=== PATIENT | male | born 1985 | race Caucasian/White ===

== ENCOUNTER 2019-04-10 10:21 | Emergency (ER) | payer SELFPAY ==
[2019-04-10] MEDS ORDERED: Metoclopramide 10 MG/2 ML SDV IVPUSH ONE (10:43)
[2019-04-10] MEDS ORDERED: LORazepam 2 MG/ML SDV IVPUSH ONE (10:44)
[2019-04-10] MEDS ORDERED: Dextrose 5%-Lactated Ringers 1,000 ML IV SCH (10:45)
--- NOTE | 2019-04-10 10:47 | EDM.PDOCBH ---
ED HPI GENERAL MEDICAL PROBLEM - General Chief Complaint: Drug or Alcohol Abuse Stated Complaint: VITALS ARE OFF SENT BY [facility] Time Seen by Provider: 04/10/19 10:42 Source of Information: Reports: Patient History Limitations: Reports: No Limitations - History of Present Illness INITIAL COMMENTS - FREE TEXT/NARRATIVE: 34-year-old male sent across from [facility] for medical clearance examination for potential admission to the residential crisis Center for detox from alcohol. Patient is been binging hard over the last week and upwards of of a gallon of vodka every 3 days. Has been drinking on a daily basis and has done so for greater than 10 years. Smokes a pack of cigarettes daily. Denies recreational or IV drug use. This morning he has been able to keep much down. Last drink was on Wednesday evening. He is now therefore 36 hours into his detoxification. Feels jittery and nauseated. Denies ever vomiting up any blood in the mornings. Does have morning emesis daily. Stools are almost always in the low side. Evaluation at the clinic revealed that his blood pressure was elevated and he has not seen a physician for many years. No obvious primary hypertension or signs or symptoms of alcohol withdrawal. Onset: Other (Chronic alcoholism. Trying to stop.) Duration: Hour(s): Location: Reports: Generalized (Feels generalized tremulous.) Quality: Reports: Other Severity: Moderate (Nausea not able to keep down water this morning.) Improves with: Reports: None Worsens with: Reports: None Context: Reports: Other (Chronic alcoholism.). Denies: Activity, Exercise, Lifting, Sick Contact, Trauma Associated Symptoms: Reports: Cough, Loss of Appetite, Malaise (Smoker's cough.) , Nausea/Vomiting, Weakness. Denies: Confusion, Chest Pain, cough w sputum, Diaphoresis, Fever/Chills, Headaches, Rash, Seizure (Nausea and dry heaves this morning), Shortness of Breath, Syncope Treatments HOUSE WIRER: Reports: Other (see below) (None.) Abdominal Pain Score (Numeric/FACES): 7 - Related Data Allergies Allergy/AdvReac Type Severity Reaction Status Date / Time No Known Allergies Allergy Verified 04/10/19 10:31 Home Meds: Home Meds LORazepam [Ativan] 1 mg PO ASDIRECTED #18 tablet 04/10/19 [Rx] Past Medical History Musculoskeletal History: Reports: Other (See Below) (Has had a complete separation of his right shoulder with open reduction internal fixation and then secondary removal of the hardware.) Psychiatric History: Reports: Addiction Social & Family History - Tobacco Use Smoking Status *Q: Never Smoker - Recreational Drug Use Recreational Drug Use: No - Living Situation & Occupation Occupation: Employed ED ROS GENERAL - Review of Systems Review Of Systems: See Below Constitutional: Reports: Malaise, Weakness, Fatigue, Decreased Appetite. Denies : Fever, Chills HEENT: Reports: No Symptoms Respiratory: Reports: Wheezing, Cough (Occasional wheezing), Sputum ( markers cough). Denies: Hemoptysis ( knee. ) Cardiovascular: Reports: No Symptoms, Other (Sent to the ED for evaluation of his blood pressure as it is elevated at 160/115). Denies: Chest Pain, Blood Pressure Problem, Claudication, Dyspnea on Exertion, Edema, Lightheadedness, Orthopnea Endocrine: Denies: Fatigue, High Glucose, Low Glucose, Polydypsia GI/Abdominal: Reports: Diarrhea (Stools are always on the semi-formed to loose side. No blood noted), Decreased Appetite, Nausea, Other (Usually vomits every morning. Dry heaves.). Denies: Hematemesis : Reports: Frequency Musculoskeletal: Reports: Back Pain, Joint Pain (Right shoulder pain at times) Skin: Reports: Other (Scar right upper forehead where he had a skin tumor removed which was benign) Neurological: Reports: No Symptoms, Weakness. Denies: Confusion, Dizziness, Headache, Numbness, Paresthesia, Pre-Existing Deficit, Seizure, Syncope, Tingling, Tremors, Trouble Speaking, Difficulty Walking Psychiatric: Reports: No Symptoms Hematologic/Lymphatic: Reports: No Symptoms Immunologic: Reports: No Symptoms ED EXAM, BEHAVIORAL HEALTH - Physical Exam Exam: See Below Exam Limited By: No Limitations General Appearance: Alert, WD/WN, Anxious, Moderate Distress, Other (Initial vital signs show is afebrile pulse is 96 and sinus respiratory 16 initial BP was 160/115 with sats of 98% on room air. BP did come down to 1 5108 within a few minutes of being in the ED.) Eye Exam: Bilateral Eye: Normal Inspection (No scleral icterus. No pallor.) Throat/Mouth: Other (Tongue is dry and coated. Or purchase diffusely erythematous from smoking.) Head: Atraumatic, Normocephalic, Other Neck: Normal Inspection (No outward signs of head or facial trauma.), Supple, Non-Tender, Full Range of Motion. No: Lymphadenopathy (L), Lymphadenopathy (R) Respiratory/Chest: No Respiratory Distress, No Accessory Muscle Use, Rhonchi ( Scattered rhonchi upper anterior chest x-ray with coughing.), Wheezing ( Occasional expiratory wheeze.) Cardiovascular: Normal Peripheral Pulses, Regular Rate, Rhythm, No Edema, No Gallop, No Murmur, No Rub GI/Abdominal: Normal Bowel Sounds, Soft, Non-Tender, No Abnormal Bruit, No Mass , Pelvis Stable, Tender (No surgical scars tender right upper quadrant in the distribution of his liver. Mild.), Hepatomegaly, Other (Male) Exam: No Hernia Back Exam: Normal Inspection, Full Range of Motion. No: CVA Tenderness (L), CVA Tenderness (R) Extremities: Normal Inspection, Normal Range of Motion, Non-Tender Neurological: Alert, Normal Mood/Affect, CN II-XII Intact, Normal Cognition, Normal Gait, No Motor/Sensory Deficits, Oriented x 3 Psychiatric: Alert, Normal Affect, Normal Cognition, Normal Mood, Oriented, Other Skin Exam: Warm (Mildly anxious.), Dry, Intact, Normal color, No rash EKG INTERPRETATION EKG Date: 04/10/19 Time: 11:33 Rhythm: NSR Rate (Beats/Min): 76 Dora: Normal P-Wave: Present QRS: Other (Initial poor R-wave progression may be due to lead placement. There are Q waves in leads 3 and aVF with T-wave inversion. Cannot rule out old inferior wall myocardial infarction.) ST-T: Other (T-wave inversion leads 3 and aVF only.) QT: Normal EKG Interpretation Comments: Abnormal ECG COURSE, BEHAVIORAL HEALTH COMP - Course Vital Signs: Last Vital Signs Temp 36.3 C 04/10/19 10:28 Pulse 96 04/10/19 10:28 Resp 16 04/10/19 10:28 BP 160/115 H 04/10/19 10:28 Pulse Ox 98 04/10/19 10:28 Orders, Labs, Meds: Active Orders 24 hr Category Date Time Status EKG Documentation Completion [RC] STAT Care 04/10/19 10:44 Active Dextrose 5%-Lactated Ringers 1,000 ml Med 04/10/19 10:45 Active IV ASDIRECTED Medication Orders Dextrose/Lactated Ringer's (Dextrose 5%-Lactated Ringers) 1,000 mls @ 999 mls/ hr IV ASDIRECTED DEBORAH Last Admin: 04/10/19 11:07 Dose: 999 mls/hr Laboratory Tests 04/10/19 04/10/19 04/10/19 Range/Units 10:54 10:54 10:54 WBC 7.80 (4.23-9.07) K/mm3 RBC 5.44 (4.63-6.08) M/mm3 Hgb 17.3 (13.7-17.5) gm/L Hct 49.8 (40.1-51.0) % MCV 91.5 (79.0-92.2) fl MCH 31.8 (25.7-32.2) pg MCHC 34.7 (32.2-35.5) g/dl RDW Std Deviation 42.8 (35.1-43.9) fL Plt Count 336 (163-337) K/mm3 MPV 8.6 L (9.4-12.3) fl Neut % (Auto) 67.9 (34.0-67.9) % Lymph % (Auto) 14.9 L (21.8-53.1) % [place] % (Auto) 16.9 H (5.3-12.2) % Eos % (Auto) 0.1 L (0.8-7.0) Baso % (Auto) 0.1 (0.1-1.2) % Neut # (Auto) 5.29 (1.78-5.38) K/mm3 Lymph # (Auto) 1.16 L (1.32-3.57) K/mm3 [place] # (Auto) 1.32 H (0.30-0.82) K/mm3 Eos # (Auto) 0.01 L (0.04-0.54) K/mm3 Baso # (Auto) 0.01 (0.01-0.08) K/mm3 Manual Slide Review Normal smear PT 10.4 (9.7-12.0) SECONDS INR 0.95 APTT 30 (22-31) SECONDS Sodium 142 (136-145) mEq/L Potassium 3.9 (3.5-5.1) mEq/L Chloride 103 (98-107) mEq/L Carbon Dioxide 28 (21-32) mEq/L Anion Gap 14.9 (5-15) BUN 7 (7-18) mg/dL Creatinine 0.8 (0.7-1.3) mg/dL Est Cr Clr Drug Dosing 128.25 mL/min Estimated GFR (MDRD) > 60 (>60) mL/min BUN/Creatinine Ratio 8.8 L (14-18) Glucose 107 H (74-106) mg/dL Calcium 9.3 (8.5-10.1) mg/dL Magnesium 1.9 (1.8-2.4) mg/dl Total Bilirubin 0.9 (0.2-1.0) mg/dL AST 54 H (15-37) U/L ALT 77 H (16-63) U/L Alkaline Phosphatase 88 (46-116) U/L Total Protein 8.3 H (6.4-8.2) g/dl Albumin 4.4 (3.4-5.0) g/dl Globulin 3.9 gm/dL Albumin/Globulin Ratio 1.1 (1-2) Lipase 140 (73-393) U/L Urine Color (Yellow) Urine Appearance (Clear) Urine pH (5.0-8.0) Ur Specific [place] (1.005-1.030) Urine Protein (Negative) Urine Glucose (UA) (Negative) Urine Ketones (Negative) Urine Occult Blood (Negative) Urine Nitrite (Negative) Urine Bilirubin (Negative) Urine Urobilinogen (0.2-1.0) Ur Leukocyte Esterase (Negative) Urine RBC (0-5) /hpf Urine WBC (0-5) /hpf Ur Squamous Epith Cells (0-5) /hpf Urine Bacteria (FEW) /hpf Urine Mucus (FEW) /hpf Urine Opiates Screen (BPWYEM=512) Ur Buprenorphine Scrn (CUTOFF=10) Ur Oxycodone Screen (SKC3JG=506) Urine Methadone Screen (CHR3YZ=195) Ur Propoxyphene Screen (NSQWTU=794) Ur Barbiturates Screen (TLJGOH=498) Ur Tricyclics Screen (OHTPBR=632) Ur Phencyclidine Scrn (CUTOFF=25) Ur Amphetamine Screen (HHOLRI=303) U Methamphetamines Scrn (SAPLEP=880) U Benzodiazepines Scrn (GAFGTD=594) U Cocaine Metab Screen (DIZYWW=720) U Marijuana (THC) Screen (CUTOFF=50) Ethyl Alcohol (0.00) gm% Ketones (0.0-0.3) mM 04/10/19 04/10/19 04/10/19 Range/Units 10:54 10:54 11:10 WBC (4.23-9.07) K/mm3 RBC (4.63-6.08) M/mm3 Hgb (13.7-17.5) gm/L Hct (40.1-51.0) % MCV (79.0-92.2) fl MCH (25.7-32.2) pg MCHC (32.2-35.5) g/dl RDW Std Deviation (35.1-43.9) fL Plt Count (163-337) K/mm3 MPV (9.4-12.3) fl Neut % (Auto) (34.0-67.9) % Lymph % (Auto) (21.8-53.1) % [place] % (Auto) (5.3-12.2) % Eos % (Auto) (0.8-7.0) Baso % (Auto) (0.1-1.2) % Neut # (Auto) (1.78-5.38) K/mm3 Lymph # (Auto) (1.32-3.57) K/mm3 [place] # (Auto) (0.30-0.82) K/mm3 Eos # (Auto) (0.04-0.54) K/mm3 Baso # (Auto) (0.01-0.08) K/mm3 Manual Slide Review PT (9.7-12.0) SECONDS INR APTT (22-31) SECONDS Sodium (136-145) mEq/L Potassium (3.5-5.1) mEq/L Chloride (98-107) mEq/L Carbon Dioxide (21-32) mEq/L Anion Gap (5-15) BUN (7-18) mg/dL Creatinine (0.7-1.3) mg/dL Est Cr Clr Drug Dosing mL/min Estimated GFR (MDRD) (>60) mL/min BUN/Creatinine Ratio (14-18) Glucose (74-106) mg/dL Calcium (8.5-10.1) mg/dL Magnesium (1.8-2.4) mg/dl Total Bilirubin (0.2-1.0) mg/dL AST (15-37) U/L ALT (16-63) U/L Alkaline Phosphatase (46-116) U/L Total Protein (6.4-8.2) g/dl Albumin (3.4-5.0) g/dl Globulin gm/dL Albumin/Globulin Ratio (1-2) Lipase (73-393) U/L Urine Color Yellow (Yellow) Urine Appearance Clear (Clear) Urine pH 6.5 (5.0-8.0) Ur Specific [place] 1.020 (1.005-1.030) Urine Protein Negative (Negative) Urine Glucose (UA) Negative (Negative) Urine Ketones Negative (Negative) Urine Occult Blood Negative (Negative) Urine Nitrite Negative (Negative) Urine Bilirubin Negative (Negative) Urine Urobilinogen 0.2 (0.2-1.0) Ur Leukocyte Esterase Negative (Negative) Urine RBC 0-5 (0-5) /hpf Urine WBC 0-5 (0-5) /hpf Ur Squamous Epith Cells Not seen (0-5) /hpf Urine Bacteria Few (FEW) /hpf Urine Mucus Few (FEW) /hpf Urine Opiates Screen (WCYKAA=998) Ur Buprenorphine Scrn (CUTOFF=10) Ur Oxycodone Screen (GJQ8LL=238) Urine Methadone Screen (PTA1DL=821) Ur Propoxyphene Screen (MIUUWT=369) Ur Barbiturates Screen (EBRBGE=003) Ur Tricyclics Screen (IMDAGR=427) Ur Phencyclidine Scrn (CUTOFF=25) Ur Amphetamine Screen (OHBEZD=898) U Methamphetamines Scrn (SHAWRO=982) U Benzodiazepines Scrn (TLADSU=438) U Cocaine Metab Screen (CECZQI=271) U Marijuana (THC) Screen (CUTOFF=50) Ethyl Alcohol 0.00 (0.00) gm% Ketones 0.49 (0.0-0.3) mM 04/10/19 Range/Units 11:11 WBC (4.23-9.07) K/mm3 RBC (4.63-6.08) M/mm3 Hgb (13.7-17.5) gm/L Hct (40.1-51.0) % MCV (79.0-92.2) fl MCH (25.7-32.2) pg MCHC (32.2-35.5) g/dl RDW Std Deviation (35.1-43.9) fL Plt Count (163-337) K/mm3 MPV (9.4-12.3) fl Neut % (Auto) (34.0-67.9) % Lymph % (Auto) (21.8-53.1) % [place] % (Auto) (5.3-12.2) % Eos % (Auto) (0.8-7.0) Baso % (Auto) (0.1-1.2) % Neut # (Auto) (1.78-5.38) K/mm3 Lymph # (Auto) (1.32-3.57) K/mm3 [place] # (Auto) (0.30-0.82) K/mm3 Eos # (Auto) (0.04-0.54) K/mm3 Baso # (Auto) (0.01-0.08) K/mm3 Manual Slide Review PT (9.7-12.0) SECONDS INR APTT (22-31) SECONDS Sodium (136-145) mEq/L Potassium (3.5-5.1) mEq/L Chloride (98-107) mEq/L Carbon Dioxide (21-32) mEq/L Anion Gap (5-15) BUN (7-18) mg/dL Creatinine (0.7-1.3) mg/dL Est Cr Clr Drug Dosing mL/min Estimated GFR (MDRD) (>60) mL/min BUN/Creatinine Ratio (14-18) Glucose (74-106) mg/dL Calcium (8.5-10.1) mg/dL Magnesium (1.8-2.4) mg/dl Total Bilirubin (0.2-1.0) mg/dL AST (15-37) U/L ALT (16-63) U/L Alkaline Phosphatase (46-116) U/L Total Protein (6.4-8.2) g/dl Albumin (3.4-5.0) g/dl Globulin gm/dL Albumin/Globulin Ratio (1-2) Lipase (73-393) U/L Urine Color (Yellow) Urine Appearance (Clear) Urine pH (5.0-8.0) Ur Specific [place] (1.005-1.030) Urine Protein (Negative) Urine Glucose (UA) (Negative) Urine Ketones (Negative) Urine Occult Blood (Negative) Urine Nitrite (Negative) Urine Bilirubin (Negative) Urine Urobilinogen (0.2-1.0) Ur Leukocyte Esterase (Negative) Urine RBC (0-5) /hpf Urine WBC (0-5) /hpf Ur Squamous Epith Cells (0-5) /hpf Urine Bacteria (FEW) /hpf Urine Mucus (FEW) /hpf Urine Opiates Screen Negative (DOSPFR=032) Ur Buprenorphine Scrn Negative (CUTOFF=10) Ur Oxycodone Screen Negative (PPM7TU=673) Urine Methadone Screen Negative (ZTI6BL=076) Ur Propoxyphene Screen Negative (DDZZOP=027) Ur Barbiturates Screen Negative (HKQMXD=231) Ur Tricyclics Screen Negative (YVSVOK=608) Ur Phencyclidine Scrn Negative (CUTOFF=25) Ur Amphetamine Screen Negative (TDOMKN=110) U Methamphetamines Scrn Negative (PTQUYD=668) U Benzodiazepines Scrn Negative (XXMWID=977) U Cocaine Metab Screen Negative (SUNFAB=812) U Marijuana (THC) Screen Negative (CUTOFF=50) Ethyl Alcohol (0.00) gm% Ketones (0.0-0.3) mM Medications Generic Name Dose Route Start Last Admin Trade Name Freq PRN Reason Stop Dose Admin Dextrose/Lactated Ringer's 1,000 mls @ 999 mls/hr 04/10/19 10:45 04/10/19 11: 07 Dextrose 5%-Lactated Ringers IV 999 mls/hr ASDIRECTED DEBORAH Administration Discontinued Medications Generic Name Dose Route Start Last Admin Trade Name Freq PRN Reason Stop Dose Admin Lorazepam 1 mg 04/10/19 10:44 04/10/19 11:07 Ativan IVPUSH 04/10/19 10:45 1 mg ONETIME ONE Administration Metoclopramide HCl 10 mg 04/10/19 10:43 04/10/19 11:08 Reglan IVPUSH 04/10/19 10:44 10 mg ONETIME ONE Administration Thiamine HCl 100 mg 04/10/19 10:48 04/10/19 11:09 Vitamin B-1 IVPUSH 04/10/19 10:49 100 mg ONETIME ONE Administration Re-Assessment/Re-Exam: 34-year-old male sent across from [facility] where he went this morning seeking help to help stop drinking alcohol. Patient is been drinking alcohol on a daily basis for about 10 years. Is drinking over the last 3-4 days where he drank a gallon of vodka. Usually goes through about a gallon every 3 days. He has morning emesis and dry heaves. Tetanus in the mornings and has take a drink to control them. Has been still working. He is suffering mild malnutrition. It' s been 36 patient couldn't keep much down this morning other than a little better water. She didn't sleep at all last night feeling agitated and restless. Examination reveals a few rhonchi and expiratory wheezes in his chest from smoking. Benign abdomen other than slight tenderness right upper quadrant of the abdomen in the distribution of his liver which is mildly palpable. Very mild tremor at this time. Plan IV D5 Ringer's lactate at open. Given Reglan 10 mg IV with Ativan 1 mg IV. We'll also do be given thiamine 100 mg IV. Routine labs to include coags and serum magnesium level. Serum lipase as well. Blood alcohol level as well. Re-Assessment/Re-Exam Date: 04/10/19 (11:24: Blood pressure has come down to 119 /57.) Re-Assessment/Re-Exam Time: 12:55 (Urinalysis is normal. Urine drug screen is negative as well. White count is 7.80 with automated differential showing 68% neutrophils. Hemoglobin is 17.3 with hematocrit of 49.8 indicating mild volume depletion or hemoconcentration. Platelet count is normal at 336,000.. Chemistry reveals a sodium of 142 and a potassium of 3.9. Chloride is 103 with a bicarbonate of 28. And a gap is 14.9. B you and is 7 with a creatinine of 0.8. GFR is greater than 60. Glucose is 107 with a calcium of 9.3. Magnesium is normal at 1.9. Liver function shows a normal bilirubin at 0.9. AST is mildly elevated at 54 and ALT is mildly elevated at 77. Alk phosphatase is 88. Total protein is 8.3 with an albumin fraction of 4.4. Serum lipase is 140. Serum ketones were mildly elevated at 0.49. Blood alcohol is 0.00.) Medical Clearance: 04/10/19 13:25 Patient is still is cleared for admission to the [facility] an acute care [facility].. That will not be available until tomorrow. He it will therefore report to [facility] tomorrow morning. I will start him on Ativan 1 mg by mouth every 6 hours for 2 days and then one every 8 hours for 2 days then 1 every 12 hours for 2 days and then off. Departure - Departure Time of Disposition: 13:26 Disposition: Home, Self-Care 01 Condition: Fair Clinical Impression: Alcohol withdrawal syndrome Qualifiers: Complication of substance-induced condition: uncomplicated Qualified Code(s): F10.230 - Alcohol dependence with withdrawal, uncomplicated - Discharge Information *PRESCRIPTION DRUG MONITORING PROGRAM REVIEWED*: No *COPY OF PRESCRIPTION DRUG MONITORING REPORT IN PATIENT TIFFANY: No Prescriptions: LORazepam [Ativan] 1 mg PO ASDIRECTED #18 tablet Referrals: PCP,None [Primary Care Provider] - Additional Instructions: Evaluation in the emergency room today in regards to Dr. drinking alcohol. Heavy alcohol use for the last 10 years. Fairly heavy over the last 3 days as well. Usually he will start to have detox symptoms which is tremors sweats nausea and vomiting 36-48 hours after the last alcohol drink. Lab tests done through the ED revealed mild volume depletion as we expected suggest been able to eat or drink much the last day or so. Her nausea was treated with Reglan 10 mg IV and given a dose of Ativan 1 mg IV to alleviate withdrawal symptoms. This medication will need to be continued in tablet form one tablet every 6 hours for the next 2 days and then reduce to 1 tablet every 8 hours for 2 days and then 1 tablet every 12 hours for 2 days and then 1 tablet at bedtime the next night. This would be to 3 acute withdrawal phase. Discussions with [facility] clinic indicate that you will be admitted tentatively to the residential treatment center tomorrow morning as they do not have a bed available today. From a medical point of view you are cleared for admission to that facility. Next dose of Ativan would be due around 1830 tonight and then midnight. Return to emergency department if any nausea vomiting, delirium or severe tremors occur or inability keep down medication. - My Orders Last 24 Hours: My Active Orders 04/10/19 10:44 EKG Documentation Completion [RC] STAT 04/10/19 10:45 Dextrose 5%-Lactated Ringers 1,000 ml IV ASDIRECTED - Assessment/Plan Last 24 Hours: My Active Orders 04/10/19 10:44 EKG Documentation Completion [RC] STAT 04/10/19 10:45 Dextrose 5%-Lactated Ringers 1,000 ml IV ASDIRECTED
[2019-04-10] MEDS ORDERED: Thiamine 200 MG/2 ML MDV IVPUSH ONE (10:48)
[2019-04-10] MEDS ORDERED: LORazepam 1 MG Tab PO ONE (13:24)
== END 2019-04-10 13:53 | disposition home or self-care (01) ==
LOC: JD.ED 10:21
DX: F10.230 Alcohol dependence with withdrawal, uncomplicated (principal)
CPT/HCPCS: 36415; 80053; 80306; 81001; 82009; 83690; 83735; 85025; 85610; 85730; 93005; 96361; 96374; 96375; 99285; A9270; G0480; J2060; J2765; J3411; J7042

== ENCOUNTER 2019-06-22 10:29 | Emergency (ER) | payer SELFPAY ==
--- NOTE | 2019-06-22 10:38 | EDM.PDOC ---
ED HPI GENERAL MEDICAL PROBLEM - General Chief Complaint: General Stated Complaint: ALCOHOL WITHDRAWAL Time Seen by Provider: 06/22/19 10:37 - History of Present Illness INITIAL COMMENTS - FREE TEXT/NARRATIVE: 34-year-old male presents to the emergency room to get off alcohol. Patient has a 10 year history of heavy alcohol abuse. He was evaluated here couple months ago and then went to [facility] for a week or 2 and stayed dry for about a month he stopped going to and started drinking again. He says his drinking was pretty moderate until about a week ago the increased over the last week or so. He has been drinking 4-5 beers a day and and 2 fifths of whiskey daily. His last drink was last night some time he is not certain when he says over the last week he drinks to the point of passing out awakens and does it all over again. The patient is a little nauseated now but he denies any pain. The patient describes a what could be a long history of anxiety problems. The patient is not aware of any seizure like activity. - Related Data Allergies Allergy/AdvReac Type Severity Reaction Status Date / Time No Known Allergies Allergy Verified 06/22/19 10:43 Home Meds: Home Meds LORazepam [Ativan] 1 mg PO Q6H #20 tab 06/22/19 [Rx] Potassium Chloride [Klor-Con M20] 20 meq PO Q8H #7 tab.er 06/22/19 [Rx] Past Medical History Musculoskeletal History: Reports: Other (See Below) (Has had a complete separation of his right shoulder with open reduction internal fixation and then secondary removal of the hardware.) Psychiatric History: Reports: Addiction Social & Family History - Living Situation & Occupation Occupation: Employed ED ROS GENERAL - Review of Systems Review Of Systems: See Below Constitutional: Reports: No Symptoms HEENT: Reports: No Symptoms Respiratory: Reports: No Symptoms Cardiovascular: Reports: No Symptoms Endocrine: Reports: No Symptoms GI/Abdominal: Reports: Nausea. Denies: Constipation, Diarrhea, Vomiting Musculoskeletal: Reports: No Symptoms Skin: Reports: No Symptoms Neurological: Reports: Other (He has a history of a seizure years ago while trying to quit drinking). Denies: No Symptoms ED EXAM, GENERAL - Physical Exam Exam: See Below Exam Limited By: No Limitations General Appearance: Alert, Anxious (Mildly anxious) Eye Exam: Bilateral Eye: Normal Inspection Ears: Normal External Exam, Normal Canal, Hearing Grossly Normal, Normal TMs Throat/Mouth: Normal Inspection, Normal Lips, Normal Teeth, Normal Gums, Normal Oropharynx, Normal Voice, No Airway Compromise Head: Atraumatic, Normocephalic Respiratory/Chest: No Respiratory Distress, Lungs Clear, Normal Breath Sounds, No Accessory Muscle Use, Chest Non-Tender Cardiovascular: Regular Rate, Rhythm, No Edema, No Murmur GI/Abdominal: Normal Bowel Sounds, Soft, Other (Vague generalized discomfort very mild no rigidity rebound or guarding) Neurological: Alert, Oriented, Normal Cognition Psychiatric: Normal Affect, Anxious (He is mildly anxious at this time no thoughts of hurting himself) Skin Exam: Warm, Dry, Intact Lymphatic: No Adenopathy Course - Vital Signs Last Recorded V/S: Last Vital Signs Temp 36.2 C 06/22/19 10:39 Pulse 110 H 06/22/19 10:39 Resp 18 06/22/19 10:39 BP 129/108 H 06/22/19 10:39 Pulse Ox 98 06/22/19 10:39 - Orders/Labs/Meds Labs: Laboratory Tests 06/22/19 06/22/19 06/22/19 Range/Units 11:21 11:21 12:18 WBC 9.96 H (4.23-9.07) K/mm3 RBC 5.62 (4.63-6.08) M/mm3 Hgb 17.3 (13.7-17.5) gm/dl Hct 50.0 (40.1-51.0) % MCV 89.0 (79.0-92.2) fl MCH 30.8 (25.7-32.2) pg MCHC 34.6 (32.2-35.5) g/dl RDW Std Deviation 41.8 (35.1-43.9) fL Plt Count 437 H D (163-337) K/mm3 MPV 8.3 L (9.4-12.3) fl Neutrophils % (Manual) 69 H (40-60) % Band Neutrophils % 2 (0-10) % Lymphocytes % (Manual) 18 L (20-40) % Atypical Lymphs % 0 % Monocytes % (Manual) 11 H (2-10) % Eosinophils % (Manual) 0 L (0.8-7.0) % Basophils % (Manual) 0 L (0.2-1.2) Platelet Estimate Adequate RBC Morph Comment Normal Sodium 139 (136-145) mEq/L Potassium 3.4 L (3.5-5.1) mEq/L Chloride 100 (98-107) mEq/L Carbon Dioxide 26 (21-32) mEq/L Anion Gap 16.4 H (5-15) BUN 8 (7-18) mg/dL Creatinine 0.7 (0.7-1.3) mg/dL Est Cr Clr Drug Dosing 146.57 mL/min Estimated GFR (MDRD) > 60 (>60) mL/min BUN/Creatinine Ratio 11.4 L (14-18) Glucose 119 H (74-106) mg/dL Calcium 8.8 (8.5-10.1) mg/dL Magnesium 1.9 (1.8-2.4) mg/dl Total Bilirubin 0.2 (0.2-1.0) mg/dL AST 35 (15-37) U/L ALT 57 (16-63) U/L Alkaline Phosphatase 101 (46-116) U/L Total Protein 7.8 (6.4-8.2) g/dl Albumin 3.9 (3.4-5.0) g/dl Globulin 3.9 gm/dL Albumin/Globulin Ratio 1.0 (1-2) Urine Color Yellow (Yellow) Urine Appearance Clear (Clear) Urine pH 7.0 (5.0-8.0) Ur Specific [place] 1.015 (1.005-1.030) Urine Protein Negative (Negative) Urine Glucose (UA) Negative (Negative) Urine Ketones Negative (Negative) Urine Occult Blood Negative (Negative) Urine Nitrite Negative (Negative) Urine Bilirubin Negative (Negative) Urine Urobilinogen 0.2 (0.2-1.0) Ur Leukocyte Esterase Negative (Negative) Urine RBC 0-5 (0-5) /hpf Urine WBC Not seen (0-5) /hpf Ur Squamous Epith Cells 0-5 (0-5) /hpf Urine Bacteria Rare (FEW) /hpf Urine Mucus Not seen (FEW) /hpf Urine Opiates Screen (AQAROO=483) Ur Buprenorphine Scrn (CUTOFF=10) Ur Oxycodone Screen (FCZ9SL=071) Urine Methadone Screen (CLF9MY=867) Ur Propoxyphene Screen (YNHNYL=784) Ur Barbiturates Screen (YWDSQZ=767) Ur Tricyclics Screen (LFQVXE=835) Ur Phencyclidine Scrn (CUTOFF=25) Ur Amphetamine Screen (FAXZNL=868) U Methamphetamines Scrn (YAYSER=857) U Benzodiazepines Scrn (AAGGZF=924) U Cocaine Metab Screen (AWKZWA=794) U Marijuana (THC) Screen (CUTOFF=50) Ethyl Alcohol 0.13 (0.00) gm% 06/22/19 Range/Units 12:18 WBC (4.23-9.07) K/mm3 RBC (4.63-6.08) M/mm3 Hgb (13.7-17.5) gm/dl Hct (40.1-51.0) % MCV (79.0-92.2) fl MCH (25.7-32.2) pg MCHC (32.2-35.5) g/dl RDW Std Deviation (35.1-43.9) fL Plt Count (163-337) K/mm3 MPV (9.4-12.3) fl Neutrophils % (Manual) (40-60) % Band Neutrophils % (0-10) % Lymphocytes % (Manual) (20-40) % Atypical Lymphs % % Monocytes % (Manual) (2-10) % Eosinophils % (Manual) (0.8-7.0) % Basophils % (Manual) (0.2-1.2) Platelet Estimate RBC Morph Comment Sodium (136-145) mEq/L Potassium (3.5-5.1) mEq/L Chloride (98-107) mEq/L Carbon Dioxide (21-32) mEq/L Anion Gap (5-15) BUN (7-18) mg/dL Creatinine (0.7-1.3) mg/dL Est Cr Clr Drug Dosing mL/min Estimated GFR (MDRD) (>60) mL/min BUN/Creatinine Ratio (14-18) Glucose (74-106) mg/dL Calcium (8.5-10.1) mg/dL Magnesium (1.8-2.4) mg/dl Total Bilirubin (0.2-1.0) mg/dL AST (15-37) U/L ALT (16-63) U/L Alkaline Phosphatase (46-116) U/L Total Protein (6.4-8.2) g/dl Albumin (3.4-5.0) g/dl Globulin gm/dL Albumin/Globulin Ratio (1-2) Urine Color (Yellow) Urine Appearance (Clear) Urine pH (5.0-8.0) Ur Specific [place] (1.005-1.030) Urine Protein (Negative) Urine Glucose (UA) (Negative) Urine Ketones (Negative) Urine Occult Blood (Negative) Urine Nitrite (Negative) Urine Bilirubin (Negative) Urine Urobilinogen (0.2-1.0) Ur Leukocyte Esterase (Negative) Urine RBC (0-5) /hpf Urine WBC (0-5) /hpf Ur Squamous Epith Cells (0-5) /hpf Urine Bacteria (FEW) /hpf Urine Mucus (FEW) /hpf Urine Opiates Screen Negative (WSNCQV=829) Ur Buprenorphine Scrn Negative (CUTOFF=10) Ur Oxycodone Screen Negative (ASX8FH=103) Urine Methadone Screen Negative (RMH0XO=086) Ur Propoxyphene Screen Negative (LNJQXN=051) Ur Barbiturates Screen Negative (HJLKRZ=701) Ur Tricyclics Screen Negative (BOKZHW=472) Ur Phencyclidine Scrn Negative (CUTOFF=25) Ur Amphetamine Screen Negative (IUWYDR=599) U Methamphetamines Scrn Negative (GKFIDI=476) U Benzodiazepines Scrn Negative (HJMLKS=429) U Cocaine Metab Screen Negative (QWOUES=004) U Marijuana (THC) Screen Negative (CUTOFF=50) Ethyl Alcohol (0.00) gm% Meds: Medications Discontinued Medications Generic Name Dose Route Start Last Admin Trade Name Freq PRN Reason Stop Dose Admin Cyanocobalamin 1,000 mcg 06/22/19 10:56 06/22/19 11:14 Vitamin B12 IM 06/22/19 10:57 1,000 mcg ONETIME ONE Administration Folic Acid 1 mg 06/23/19 10:56 Folic Acid IV 06/23/19 10:57 ONETIME ONE Folic Acid 1 mg 06/22/19 11:00 06/22/19 11:14 Folic Acid IV 06/22/19 11:01 1 mg ONETIME ONE Administration Lactated Ringer's 1,000 mls @ 999 mls/hr 06/22/19 10:55 06/22/19 11:14 Ringers, Lactated IV 06/22/19 11:55 999 mls/hr .BOLUS ONE Administration Magnesium Sulfate/Dextrose 1 100 mls @ 100 mls/hr 11/07/19 12:40 06/22/19 13: 03 gm/ Premix IV 06/22/19 13:39 100 mls/hr ONETIME ONE Administration Lorazepam 1 mg 06/22/19 11:28 06/22/19 11:37 Ativan IVPUSH 06/22/19 11:29 1 mg ONETIME ONE Administration Lorazepam 1 mg 06/22/19 11:35 Ativan IVPUSH 06/22/19 11:36 ONETIME ONE Ondansetron HCl 4 mg 06/22/19 10:58 06/22/19 11:14 Zofran IVPUSH 06/22/19 10:59 4 mg ONETIME ONE Administration Potassium Chloride 40 meq 06/22/19 12:41 06/22/19 13:03 Klor-Con M20 PO 06/22/19 12:42 40 meq ONETIME ONE Administration - Re-Assessments/Exams Free Text/Narrative Re-Assessment/Exam: 06/22/19 12:53 Review the patient's magnesium and potassium as potassium was low. I did discuss to is within [place] and they do not have availability in a crisis bed. Offered to try and get him to [place] on the but patient declined leaving [facility]. We are trying to get him a follow-up appointment in the clinic tomorrow. 06/22/19 13:55 They clinic can get them in on Wednesday morning as a work in with Dr. Lane. I again discussed the importance of inpatient treatment for this and the patient refuses. We'll discharge home with Ativan he agrees to follow-up in the clinic on Wednesday she also agrees return to the emergency room if his condition worsens in any way Departure - Departure Time of Disposition: 13:56 Disposition: Home, Self-Care 01 Clinical Impression: Alcohol abuse Alcohol withdrawal syndrome Qualifiers: Complication of substance-induced condition: uncomplicated Qualified Code(s): F10.230 - Alcohol dependence with withdrawal, uncomplicated - Discharge Information Prescriptions: LORazepam [Ativan] 1 mg PO Q6H #20 tab Potassium Chloride [Klor-Con M20] 20 meq PO Q8H #7 tab.er Referrals: PCP,None [Primary Care Provider] - Forms: ED Department Discharge Additional Instructions: Return to the emergency room with any questions problems worsening symptoms. You have a follow-up with Dr. Lane in the Hospital clinic in 8:00 Wednesday morning. However they will work you in around other patients you may have to sit for a little bit , be there at 8:00 AM. Take the Ativan one every 6 hours. Take the potassium one more dose tonight and then 3 times daily for the next couple of days
[2019-06-22] MEDS ORDERED: Lactated Ringers 1,000 ML IV ONE (10:55)
[2019-06-22] MEDS ORDERED: Cyanocobalamin (Vitamin B12) 1,000 MCG/ML SDV IM ONE (10:56)
[2019-06-22] MEDS ORDERED: Ondansetron 4 MG/2 ML SDV IVPUSH ONE (10:58)
[2019-06-22] MEDS ORDERED: Folic Acid 50 MG/10 ML MDV IV ONE (11:00)
[2019-06-22] MEDS ORDERED: LORazepam 2 MG/ML SDV IVPUSH ONE ×2 (11:28→11:35)
[2019-06-22] MEDS ORDERED: Potassium Chloride 20 MEQ Tab.ER PO ONE (12:41)
[2019-06-23] MEDS ORDERED: Folic Acid 50 MG/10 ML MDV IV ONE (10:56)
== END 2019-06-22 14:13 | disposition home or self-care (01) ==
LOC: JD.ED 10:29
DX: F10.230 Alcohol dependence with withdrawal, uncomplicated (principal); Y90.0 Blood alcohol level of less than 20 mg/100 ml
CPT/HCPCS: 36415; 80053; 80306; 80320; 81001; 83735; 85007; 85027; 96361; 96365; 96372; 96375; 99284; A9270; J2060; J2405; J3420; J3475; J7120; 99283; G0480